=== PATIENT | male | born 1995 | race Caucasian/White ===

== ENCOUNTER 2019-04-19 21:39 | Emergency (ER) | payer BC, MEDICAID ==
[~2019-04-19] VITALS: Ht 165.1 cm; Wt 68.0 kg
[2019-04-19 22:01] VITALS: BP 137/79
[2019-04-19] MEDS ORDERED: NACL 0.9% 1,000 ML IV ONE (22:25)
[2019-04-19] MEDS ORDERED: KETOROLAC 30 MG/ML VIAL IVP ONE (22:25)
--- NOTE | 2019-04-19 22:35 | NUR ---
LAB AT BEDSIDE
--- NOTE | 2019-04-19 22:36 | NUR ---
PT CAME TO ER C/O DIARRHEA, SORE THROAT, BILATERAL EAR PAIN, COUGH AND CHILLS SINCE TODAY. PER PT HE HAS WATERY MUCOUS TEXTURED DIARRHEA X8 TODAY. PT STATES "I WORK IN A [employer] AND IS EXPOSED TO ALOT OF GERMS EVERYDAY." PT TOOK TYLENOL AT 1630 TODAY. THROAT IS RED. PT DENIES ANY PAIN. PAIN LEVEL 0/10. NKA. NO MED HX. ERMD AT BEDSIDE.
--- NOTE | 2019-04-19 22:41 | NUR ---
PT WENT TO XRAY VIA WHEEL CHAIR
[2019-04-19 22:43] LABS: BASOPHILS % (AUTO) 0.1 % (0.0-2.0); EOSINOPHILS % (AUTO) 0.3 % (0.0-4.0); HEMATOCRIT 41.3 % (36-52); LYMPHOCYTES % (AUTO) 9.9 % (20.5-51.1); MEAN CORPUSCULAR HEMOGLOBIN 28 pg (27-31); MEAN CORPUSCULAR HGB CONC 34 g/dL (33-37); MEAN CORPUSCULAR VOLUME 81.5 fL (80-94); MONOCYTES # (AUTO) 1.2 K/uL (0.8-1.0); MONOCYTES % (AUTO) 11.7 % (1.7-9.3); NEUTROPHILS # (AUTO) 7.8 K/uL (1.8-7.7); PLATELET COUNT (AUTO) 191 K/uL (140-450); RED BLOOD CELL COUNT(AUTO) 5.07 MIL/uL (4.20-6.10); RED CELL DISTRIBUTION WIDTH 13.4 % (11.6-13.7)
[2019-04-19 23:00] LABS: ALBUMIN 3.9 g/dL (3.4-5.0); ANION GAP 15.9 (8-16); CARBON DIOXIDE 22.9 mmol/L (21-32); POTASSIUM 3.8 mmol/L (3.5-5.1)
--- NOTE | 2019-04-19 23:15 | NUR ---
PT RESTING IN BED COMFORTABLY. VSS. WILL CONTINUE TO MONITOR.
[2019-04-19 23:18] LABS: CREATININE 1.3 mg/dL (0.7-1.3); TOTAL BILIRUBIN 0.3 mg/dL (0.0-1.0)
--- NOTE | 2019-04-20 00:09 | NUR ---
Patient discharged with v/s stable. Written and verbal after care instructions given and explained. Pt encouraged to drink plenty of fluids and eat foods with fiber. Patient alert, oriented and verbalized understanding of instructions. Ambulatory with steady gait. All questions addressed prior to discharge. ID band removed. Patient advised to follow up with PMD. Rx of TRAMADOL WAS given. Patient educated on indication of medication including possible reaction and side effects. Opportunity to ask questions provided and answered.
[2019-04-20 00:10] VITALS: BP 137/79
== END 2019-04-20 00:05 | disposition home or self-care (01) ==
LOC: MED 21:39
DX: J06.9 Acute upper respiratory infection, unspecified (principal); R19.7 Diarrhea, unspecified; R11.10 Vomiting, unspecified; H92.09 Otalgia, unspecified ear
CPT/HCPCS: 36415; 74022; 80053; 85025; 96361; 96374; 99284; J1885; J7030

== ENCOUNTER 2019-04-23 16:42 | Emergency (ER) | payer BC, MEDICAID ==
[~2019-04-23] VITALS: Ht 165.1 cm; Wt 70.3 kg
[2019-04-23 16:50] VITALS: BP 106/71
--- NOTE | 2019-04-23 17:15 | NUR ---
PT TAKEN TO BED 4.
--- NOTE | 2019-04-23 17:25 | NUR ---
PT C/O CRAMPING PERIUMBILICAL PAIN AND SORE THROAT AND DRY COUGH X 5 DAYS. WAS SEEN HERE ON THURSDAY DX WITH URI AND RX OF TRAMADOL FOR PAIN. SORE THROAT NOT IMPROVING. DIARRHEA SINCE THURSDAY WHICH TURNED BRIGHT BLOODY YESTERDAY AND TODAY. HAD DIARRHEA 15X YESTERDAY AND 8X TODAY, WITH BLOOD SEEN INTERMITTENTLY. NAD. PATIENT STATES 8/10 PERIUMBILICAL PAIN & 5/10 SORE THROAT AT THIS TIME; VSS; PATIENT POSITIONED FOR COMFORT; HOB ELEVATED; BEDRAILS UP X1; BED DOWN. ER MD MADE AWARE OF PT STATUS.
[2019-04-23] MEDS ORDERED: NACL 0.9% 1,000 ML IV SCH (18:37)
--- NOTE | 2019-04-23 19:08 | NUR ---
PT AMBULATED TO RESTROOM
--- NOTE | 2019-04-23 19:12 | NUR ---
Pt report given at bedside to CANDACE Lugo. Transfer of care at this time.
[2019-04-23 19:22] LABS: BASOPHILS % (AUTO) 0.6 % (0.0-2.0); EOSINOPHILS # (AUTO) 0.2 K/uL (0-0.4); EOSINOPHILS % (AUTO) 2.9 % (0.0-4.0); HEMATOCRIT 44.3 % (36-52); HEMOGLOBIN 14.7 g/dL (12.0-18.0); LYMPHOCYTES # (AUTO) 2.2 K/uL (2.0-11.5); LYMPHOCYTES % (AUTO) 34.2 % (20.5-51.1); MEAN CORPUSCULAR HEMOGLOBIN 27 pg (27-31); MEAN CORPUSCULAR HGB CONC 33 g/dL (33-37); MONOCYTES # (AUTO) 1.3 K/uL (0.8-1.0); MONOCYTES % (AUTO) 19.3 % (1.7-9.3); NEUTROPHILS # (AUTO) 2.8 K/uL (1.8-7.7); PLATELET COUNT (AUTO) 240 K/uL (140-450); RED BLOOD CELL COUNT(AUTO) 5.46 MIL/uL (4.20-6.10); RED CELL DISTRIBUTION WIDTH 13.4 % (11.6-13.7); WHITE BLOOD COUNT (AUTO) 6.6 K/uL (4.8-10.8)
[2019-04-23] MEDS ORDERED: DICYCLOMINE HCL LIQUID 20 MG, ALUMINUM HYD/MAG/SIMETHICONE 30 ML, LIDOCAINE VISCOUS 2% ... PO ONE ×3 (19:40)
[2019-04-23] MEDS ORDERED: PANTOPRAZOLE 40 MG INJ VIAL IVP ONE (19:40)
[2019-04-23 19:50] LABS: CARBON DIOXIDE 24.8 mmol/L (21-32); CREATININE 0.9 mg/dL (0.7-1.3); POTASSIUM 3.8 mmol/L (3.5-5.1)
[2019-04-23 20:10] LABS: TOTAL BILIRUBIN 0.2 mg/dL (0.0-1.0)
--- NOTE | 2019-04-23 20:14 | NUR ---
PT RESTING IN BED COMFORTABLY. FAMILY AT BEDSIDE. VSS. WILL CONTINUE TO MONITOR.
--- NOTE | 2019-04-23 20:42 | NUR ---
Patient discharged with v/s stable. Written and verbal after care instructions given and explained. Pt educated on eating a bland diet, avoiding fatty, greasy and spicy foods. Patient alert, oriented and verbalized understanding of instructions. Ambulatory with steady gait. All questions addressed prior to discharge. ID band removed. Patient advised to follow up with PMD. Rx of PRILOSEC WAS given. Patient educated on indication of medication including possible reaction and side effects. Opportunity to ask questions provided and answered.
[2019-04-23 20:43] VITALS: BP 116/75
[2019-04-23 21:03] LABS: APPEARANCE,URINE CLEAR (CLEAR); BILIRUBIN,URINE NEGATIVE (NEGATIVE); BLOOD, URINE NEGATIVE (NEGATIVE); COLOR,URINE YELLOW (YELLOW); LEUKOCYTE ESTERASE ,URINE NEGATIVE (NEGATIVE); NITRITE, URINE NEGATIVE (NEGATIVE); UGLUCOSE NEGATIVE (NEGATIVE)
== END 2019-04-23 20:42 | disposition home or self-care (01) ==
LOC: MED 16:42
DX: K29.70 Gastritis, unspecified, without bleeding (principal); J02.9 Acute pharyngitis, unspecified; R42 Dizziness and giddiness
CPT/HCPCS: 36415; 80053; 81003; 83690; 85025; 96361; 96374; 99283; C9113; J7030